=== PATIENT | male | born 1955 | race Hispanic/Latino ===

== ENCOUNTER 2019-01-02 16:11 | Emergency (ER) | payer OTHER ==
[2019-01-02 16:35] VITALS: BP 132/91
--- NOTE | 2019-01-02 16:39 | Event Note ---
ED Screening Note Date of service: 01/02/19 Time: 16:37 ED Screening Note: 63 y o male presents with pain, redness and burning to his right chest This initial assessment/diagnostic orders/clinical plan/treatment(s) is/are subject to change based on patients health status, clinical progression and re- assessment by fellow clinical providers in the ED. Further treatment and workup at subsequent clinical providers discretion. Patient/guardian urged not to elope from the ED as their condition may be serious if not clinically assessed and managed. Initial orders include: pain meds pred IM antiviral ACC eval
--- NOTE | 2019-01-02 17:34 | Emergency Department Report ---
- General Chief complaint: Skin Rash Stated complaint: SHINGLES/SHAKY Time Seen by Provider: 01/02/19 16:33 Source: patient Mode of arrival: Ambulatory Limitations: No Limitations - History of Present Illness Initial comments: Patient is a 63-year-old male who presents to the emergency room with complaints of a rash to the left side of his ribs that began 3 days ago. He states 4 days ago he began experiencing a burning sensation. He states then the rash erupted a day later with blisters and scabbing. Patient states it is painful and it feels like sunburn due to the burning. he states even having a shirt on the skin causes irritation. Has a past medical history hypertension. he denies any allergies to medications. - Related Data Home Medications Medication Instructions Recorded Confirmed Last Taken Lisinopril [Zestril TAB] 20 mg PO DAILY 05/02/13 05/02/13 05/01/13 Verapamil HCl [Verapamil] 40 mg PO DAILY 05/02/13 05/03/13 05/01/13 Previous Rx's Medication Instructions Recorded Last Taken Type Acetaminophen [Acetaminophen TAB] 650 mg PO Q4H PRN #30 tablet 05/05/13 Unknown Rx Oseltamivir [Tamiflu] 75 mg PO BID #10 capsule 05/05/13 Unknown Rx levoFLOXacin [Levaquin] 500 mg PO QDAY #7 tablet 05/05/13 Unknown Rx Acetaminophen/Codeine [Tylenol 1 tab PO Q6H PRN #10 tab 01/02/19 Unknown Rx /Codeine # 3 tab] Acyclovir [Zovirax Tab] 800 mg PO 5XD 7 Days #35 tab 01/02/19 Unknown Rx Lidocaine [Lidocaine GEL] 1 applicatio TP BID PRN #1 01/02/19 Unknown Rx gel..gram. predniSONE [Deltasone] 40 mg PO QDAY 5 Days #10 tab 01/02/19 Unknown Rx Allergies Allergy/AdvReac Type Severity Reaction Status Date / Time No Known Allergies Allergy Unverified 05/02/13 00:48 Abscess Boil HPI - HPI Chief Complaint: Skin Rash Stated Complaint: SHINGLES/SHAKY Time Seen by Provider: 01/02/19 16:33 Home Medications: Home Medications Medication Instructions Recorded Confirmed Last Taken Lisinopril [Zestril TAB] 20 mg PO DAILY 05/02/13 05/02/13 05/01/13 Verapamil HCl [Verapamil] 40 mg PO DAILY 05/02/13 05/03/13 05/01/13 Previous Rx's Medication Instructions Recorded Last Taken Type Acetaminophen [Acetaminophen TAB] 650 mg PO Q4H PRN #30 tablet 05/05/13 Unknown Rx Oseltamivir [Tamiflu] 75 mg PO BID #10 capsule 05/05/13 Unknown Rx levoFLOXacin [Levaquin] 500 mg PO QDAY #7 tablet 05/05/13 Unknown Rx Acetaminophen/Codeine [Tylenol 1 tab PO Q6H PRN #10 tab 01/02/19 Unknown Rx /Codeine # 3 tab] Acyclovir [Zovirax Tab] 800 mg PO 5XD 7 Days #35 tab 01/02/19 Unknown Rx Lidocaine [Lidocaine GEL] 1 applicatio TP BID PRN #1 01/02/19 Unknown Rx gel..gram. predniSONE [Deltasone] 40 mg PO QDAY 5 Days #10 tab 01/02/19 Unknown Rx Allergies/Adverse Reactions: Allergies Allergy/AdvReac Type Severity Reaction Status Date / Time No Known Allergies Allergy Unverified 05/02/13 00:48 ED Review of Systems ROS: Stated complaint: SHINGLES/SHAKY Other details as noted in HPI Comment: All other systems reviewed and negative ED Past Medical Hx - Past Medical History Previous Medical History?: Yes Hx Hypertension: Yes Hx Congestive Heart Failure: No Hx Diabetes: No Hx Asthma: No Hx COPD: No - Surgical History Past Surgical History?: No - Social History Smoking Status: Never Smoker Substance Use Type: None - Medications Home Medications: Home Medications Medication Instructions Recorded Confirmed Last Taken Type Lisinopril [Zestril TAB] 20 mg PO DAILY 05/02/13 05/02/13 05/01/13 History Verapamil HCl [Verapamil] 40 mg PO DAILY 05/02/13 05/03/13 05/01/13 History Acetaminophen [Acetaminophen TAB] 650 mg PO Q4H PRN #30 tablet 05/05/13 Unknown Rx Oseltamivir [Tamiflu] 75 mg PO BID #10 capsule 05/05/13 Unknown Rx levoFLOXacin [Levaquin] 500 mg PO QDAY #7 tablet 05/05/13 Unknown Rx Acetaminophen/Codeine [Tylenol 1 tab PO Q6H PRN #10 tab 01/02/19 Unknown Rx /Codeine # 3 tab] Acyclovir [Zovirax Tab] 800 mg PO 5XD 7 Days #35 tab 01/02/19 Unknown Rx Lidocaine [Lidocaine GEL] 1 applicatio TP BID PRN #1 01/02/19 Unknown Rx gel..gram. predniSONE [Deltasone] 40 mg PO QDAY 5 Days #10 tab 01/02/19 Unknown Rx ED Physical Exam - General Limitations: No Limitations General appearance: alert, in no apparent distress - Head Head exam: Present: atraumatic, normocephalic - Eye Eye exam: Present: normal appearance - ENT ENT exam: Present: mucous membranes moist - Neurological Exam Neurological exam: Present: alert, oriented X3 - Psychiatric Psychiatric exam: Present: normal affect, normal mood - Skin Skin exam: Present: warm, other (areas of erythema, blistering, scabbing present in a dermatomal distribution approximately in the T6/T7 dermatomal distribution) ED Course Vital Signs 01/02/19 16:34 Temperature 98.5 F Pulse Rate 128 H Respiratory 18 Rate Blood Pressure 132/91 O2 Sat by Pulse 96 Oximetry ED Medical Decision Making - Medical Decision Making Patient is a 63-year-old male who presents to the emergency room with complaints of a rash to the left side of his ribs that began 3 days ago. He states 4 days ago he began experiencing a burning sensation. He states then the rash erupted a day later with blisters and scabbing. Patient states it is painful and it feels like sunburn due to the burning. he states even having a shirt on the skin causes irritation. Has a past medical history hypertension. he denies any allergies to medications. on exam: areas of erythema, blistering, scabbing present in a dermatomal distribution approximately in the T6/T7 dermatomal distribution. examination consistent with shingles. pt given prescription for acyclovir, prednisone, lidocaine gel, and tylenol with codeine. advised pt to please use medication as prescribed. do not drive or operate heavy machinery while taking pain medication. Please follow up with primary care doctor in the next 2-3 days and discuss vaccination and be reevaluated. discussed with pt potential for post herpetic neuralgia and advised pt to discuss with his PCP. Return to the emergency room for any new or worsening symptoms. Critical care attestation.: If time is entered above; I have spent that time in minutes in the direct care of this critically ill patient, excluding procedure time. ED Disposition Clinical Impression: Shingles Qualifiers: Herpes zoster complications: without complications Qualified Code(s): B02.9 - Zoster without complications Disposition: TO HOME OR SELFCARE Is pt being admited?: No Does the pt Need Aspirin: No Condition: Stable Instructions: Herpes Zoster (ED) Additional Instructions: Please use medication as prescribed. do not drive or operate heavy machinery while taking pain medication. Please follow up with primary care doctor in the next 2-3 days and discuss vaccination and be reevaluated. Return to the emergency room for any new or worsening symptoms. Prescriptions: predniSONE [Deltasone] 40 mg PO QDAY 5 Days #10 tab Lidocaine [Lidocaine GEL] 1 applicatio TP BID PRN #1 gel..gram. PRN Reason: pain Acetaminophen/Codeine [Tylenol /Codeine # 3 tab] 1 tab PO Q6H PRN #10 tab PRN Reason: Pain , Severe (7-10) Acyclovir [Zovirax Tab] 800 mg PO 5XD 7 Days #35 tab Referrals: [facility] [Provider Group] - 2-3 Days Forms: Work/School Release Form(ED) Time of Disposition: 17:33 Print Language: LIBYAN
== END 2019-01-02 18:13 | disposition home or self-care (01) ==
LOC: ED 16:11
DX: B02.9 Zoster without complications (principal); I10 Essential (primary) hypertension; Z79.899 Other long term (current) drug therapy

== ENCOUNTER 2019-04-13 02:53 | Emergency (ER) | payer OTHER ==
[2019-04-13 04:46] LABS: Basophils % (Auto) 0.3 % (0.0-1.8); Eosinophils % (Auto) 0.5 % (0.0-4.3); Hematocrit 47.1 % (35.5-45.6); Hemoglobin 15.8 gm/dl (11.8-15.2); Lymphocytes # (Auto) 1.3 K/mm3 (1.2-5.4); Lymphocytes % (Auto) 12.8 % (13.4-35.0); Mean Corpuscular HGB Conc 34 % (32-34); Mean Corpuscular Volume 102 fl (84-94); Monocytes # (Auto) 1.1 K/mm3 (0.0-0.8); Monocytes % (Auto) 10.7 % (0.0-7.3); Platelet Count 229 K/mm3 (140-440); Red Blood Count 4.64 M/mm3 (3.65-5.03); Red Cell Distribution Width 12.7 % (13.2-15.2)
[2019-04-13 05:08] LABS: BUN/Creatinine Ratio 20; Blood Urea Nitrogen 16 mg/dL (9-20); Calcium 10.2 mg/dL (8.4-10.2); Hemolysis Index 4
--- NOTE | 2019-04-13 05:14 | Cat Scan Report ---
Head CT without intravenous contrast INDICATION: Fall tonight COMPARISON: None FINDINGS: The ventricles are normal in size and position. No hemorrhage or extra-axial fluid collecti on. No edema or mass effect. No focal infarct seen. Portions of the sinuses visualized are clear. No skull fracture identified. No scalp hematoma is seen. IMPRESSION: Negative head CT Automated exposure control was utilized to diminish radiation dose Signer Name: Daniel Patel MD Signed: 04/13/2019 5:10 AM Workstation Name: [id number]
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
[2019-04-13 07:56] LABS: Amphetamine Screen,Urine PRESUMPTIVE NEGATIVE; Benzodiazepines Screen,Urine PRESUMPTIVE NEGATIVE; Cannabinoid Screen,Urine PRESUMPTIVE NEGATIVE; Cocaine Screen,Urine PRESUMPTIVE NEGATIVE; Methadone Screen,Urine PRESUMPTIVE NEGATIVE; Opiate Screen,Urine PRESUMPTIVE NEGATIVE
[2019-04-13 07:59] LABS: Bilirubin,Urine NEG (Negative); Blood,Urine SM (Negative); Color,Urine Yellow (Yellow); Mucus,Urine 3+ /HPF; Urobilinogen,Urine < 2.0 mg/dL (<2.0)
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
--- NOTE | 2019-04-13 08:42 | XRay Report ---
Lumbar spine 3 views INDICATION: Low back pain following injury IMPRESSION: No definite vertebral body fracture is identified. Multilevel discogenic and facet arthro darlene with moderate bilateral neural foraminal stenosis at L5-S1. Signer Name: Miko Hurst MD Signed: 04/13/2019 8:38 AM Workstation Name: [id number]
[2019-04-14 09:18] VITALS: BP 150/90
== END 2019-04-14 12:58 | disposition home or self-care (01) ==
LOC: ED 02:53
DX: S39.012A Strain of muscle, fascia and tendon of lower back, initial encounter (principal); I10 Essential (primary) hypertension; F03.90 Unspecified dementia, unspecified severity, without behavioral disturbance, psychotic disturbance, mood disturbance, and anxiety; Z79.899 Other long term (current) drug therapy; W01.0XXA Fall on same level from slipping, tripping and stumbling without subsequent striking against object, initial encounter; Y93.89 Activity, other specified; Y92.89 Other specified places as the place of occurrence of the external cause; Y99.8 Other external cause status
CPT/HCPCS: 36415; 70450; 72072; 72100; 80048; 80307; 81001; 85025